=== PATIENT | female | born 1980 | race Caucasian/White ===

== ENCOUNTER 2018-09-26 09:58 | Emergency (ER) | payer OTHER ==
[2018-09-26] MEDS: predniSONE 20 MG TAB PO (10:51)
== END 2018-09-26 12:19 | disposition home or self-care (01) ==
LOC: M ED 09:58
DX: J44.1 Chronic obstructive pulmonary disease with (acute) exacerbation (principal); E11.9 Type 2 diabetes mellitus without complications; I10 Essential (primary) hypertension
CPT/HCPCS: 71046